=== PATIENT | male | born 1965 | race Caucasian/White ===

== ENCOUNTER 2016-09-18 18:17 | Inpatient (IN) | payer OTHER ==
[~2016-09-18] VITALS: Ht 182.9 cm; Wt 128.0 kg
[2016-09-18] MEDS ORDERED: FLUOXETINE20 M3 PO (19:39)
[2016-09-18] MEDS ORDERED: FUROSEMIDE40 MG PO (19:39)
[2016-09-18] MEDS ORDERED: CARVEDILOL3.125 M1 PO (19:39)
[2016-09-18] MEDS ORDERED: LANTUS SOLOS100 U/M1 SQ (19:40)
[2016-09-18] MEDS ORDERED: APIDRA SOLOS100 U/ML SC (19:41)
[2016-09-18] MEDS ORDERED: SEROQUEL100 MG PO (19:42)
[2016-09-18] MEDS ORDERED: ASPIR 8181 MG PO (19:42)
[2016-09-18] MEDS ORDERED: EFFIENT10 M2 PO (19:42)
[2016-09-18] MEDS ORDERED: LIPITOR80 MG PO (19:42)
[2016-09-18] MEDS ORDERED: PANTOPRAZOLE SO40 M1 PO (19:43)
[2016-09-18] MEDS ORDERED: CLONAZEPAM1 MG PO (19:43)
[2016-09-18 19:55] LABS: PLATELET COUNT 142 x10^3mcL (130-400)
[2016-09-18 20:00] LABS: BILIRUBIN TOTAL 0.19 mg/dL (0.20-1.00); CARBON DIOXIDE 21.9 mmol/L (21-32); CREATININE SERUM 2.8 mg/dL (0.7-1.3); POTASSIUM SERUM 4.8 mmol/L (3.5-5.1); TOTAL PROTEIN, SERUM 6.2 g/dL (6.4-8.2)
[2016-09-18 20:01] LABS: ALBUMIN 3.1 g/dL (3.4-5.0)
[2016-09-18 20:05] LABS: RED CELL DISTRIBUTION WIDTH 20.3 % (11.5-14.5)
[2016-09-18] MEDS ORDERED: COUMADIN3 MG PO (20:16)
[2016-09-18 21:19] LABS: BAND NEUTROPHIL 2 % (0-10); BASOPHIL 0 % (0-2); MONOCYTE 18 % (0-7); SEGMENTED NEUTROPHILS 55 % (37-75); rbc morphology (normal/abnorm) ABNORMAL (NORMAL)
[2016-09-18 21:21] LABS: ovalocyte/elliptocyte 1+; schistocyte (helmet cell) 1+
[2016-09-18 21:23] LABS: tear drop cell (dacryocyte) 1+
[2016-09-18 21:24] LABS: PLATELET MORPHOLOGY PLATELETS NORMAL
[2016-09-18 22:22] VITALS: BP 100/66
[2016-09-18 23:34] LABS: CHOLESTEROL/HDL RATIO 3.4; MAGNESIUM 1.8 mg/dL (1.8-2.4); PHOSPHOROUS 5.1 mg/dL (2.5-4.9); T3 TOTAL 0.5 ng/mL
[2016-09-19] LABS: FREE T4 0.53 ng/dL (0.76-1.46); T4(THYROXINE) 2.8 ug/dL (4.7-13.3)
[2016-09-19 01:00] VITALS: BP 91/57
[2016-09-19 03:10] VITALS: BP 109/65
[2016-09-19 07:40] VITALS: BP 123/70
[2016-09-19 09:08] LABS: microscopic required? NO
[2016-09-19 09:17] LABS: BASOPHIL % 0.2 % (0-2)
[2016-09-19 09:22] LABS: UA SPECIFIC GRAVITY 1.015 (1.005-1.035); urine erythrocyte NEGATIVE (NEGATIVE)
[2016-09-19 09:24] LABS: PLATELET COUNT 142 x10^3mcL (130-400)
[2016-09-19 09:26] LABS: RED CELL DISTRIBUTION WIDTH 18.9 % (11.5-14.5)
[2016-09-19 09:27] LABS: AMPHETAMINE QUAL UR NONE DETECTED (NEG <=1000)
[2016-09-19 09:29] LABS: CALCIUM 7.9 mg/dL (8.5-10.1); CARBON DIOXIDE 20.3 mmol/L (21-32); CREATININE SERUM 1.9 mg/dL (0.7-1.3); POTASSIUM SERUM 5.1 mmol/L (3.5-5.1)
[2016-09-19 12:15] VITALS: BP 110/69
[2016-09-19] MEDS ORDERED: TRAZODONE50 M1 PO (14:52)
[2016-09-19] MEDS ORDERED: CLOPIDOGREL75 M1 PO (14:53)
[2016-09-19] MEDS ORDERED: DOXAZOSIN MESYLA4 MG PO (14:54)
[2016-09-19] MEDS ORDERED: NEU300 PO ×2 (14:55)
[2016-09-19] MEDS ORDERED: ISOSORBIDE MONO30 MG PO (14:56)
[2016-09-19] MEDS ORDERED: GLIMEPIRIDE4 M1 PO (14:57)
[2016-09-19] MEDS ORDERED: METFORMIN HCL1000 MG PO (14:57)
[2016-09-19] MEDS ORDERED: LANTUS SOLOS100 U/M1 SQ (14:58)
[2016-09-19] MEDS ORDERED: METOPROLOL TART25 M1 PO (15:04)
[2016-09-19] MEDS ORDERED: DIGOXIN0.125 M1 PO (15:05)
[2016-09-19] MEDS ORDERED: NITROSTAT0.4 MG (15:06)
[2016-09-19 15:15] VITALS: BP 121/82
[2016-09-19 19:30] VITALS: BP 131/93
[2016-09-20] VITALS: BP 116/73
[2016-09-20 03:47] VITALS: BP 110/77
[2016-09-20 06:00] LABS: CALCIUM 7.8 mg/dL (8.5-10.1); CARBON DIOXIDE 27.2 mmol/L (21-32); CHLORIDE SERUM 111 mmol/L (98-107); CREATININE SERUM 1.2 mg/dL (0.7-1.3); GFR1 > 60 mL/min; GLUCOSE SERUM 141 mg/dL (74-106); MAGNESIUM 1.9 mg/dL (1.8-2.4); PHOSPHOROUS 2.5 mg/dL (2.5-4.9); POTASSIUM SERUM 4.5 mmol/L (3.5-5.1); SODIUM SERUM 145 mmol/L (136-145)
[2016-09-20 06:08] LABS: BASOPHIL % 0.1 % (0-2); PLATELET COUNT 181 x10^3mcL (130-400)
[2016-09-20 06:16] LABS: RED CELL DISTRIBUTION WIDTH 20.1 % (11.5-14.5)
[2016-09-20 07:15] VITALS: BP 118/90
[2016-09-20 14:44] VITALS: BP 114/73
[2016-09-20 18:28] VITALS: BP 109/69
[2016-09-20 19:30] VITALS: BP 140/80
[2016-09-21 06:09] VITALS: BP 133/94
[2016-09-21 08:06] VITALS: BP 141/93
[2016-09-21 09:52] VITALS: BP 136/95
[2016-09-21 13:38] VITALS: BP 120/86
[2016-09-21] MEDS ORDERED: FER300 PO (14:34)
[2016-09-21 14:50] VITALS: BP 120/86
== END 2016-09-21 15:48 | disposition home or self-care (01) | DRG 48 ==
LOC: ED 18:17 → IC 20:42 → DU 20:42 → IC 22:28 → DU 09-20 11:49
PROVIDERS: Emergency Medicine; Internal Medicine; ADMIT Family Medicine
PROC: 30233N1 Transfusion of Nonautologous Red Blood Cells into Peripheral Vein, Percutaneous Approach (ICD-10-PCS; 2016-09-18)
PROC: 30233R1 Transfusion of Nonautologous Platelets into Peripheral Vein, Percutaneous Approach (ICD-10-PCS; 2016-09-18)
PROC: 0DJD8ZZ Inspection of Lower Intestinal Tract, Via Natural or Artificial Opening Endoscopic (ICD-10-PCS; 2016-09-19)
PROC: 05HN33Z Insertion of Infusion Device into Left Internal Jugular Vein, Percutaneous Approach (ICD-10-PCS; 2016-09-19)
PROC: B544ZZA Ultrasonography of Left Jugular Veins, Guidance (ICD-10-PCS; 2016-09-19)
PROC: 0DJ08ZZ Inspection of Upper Intestinal Tract, Via Natural or Artificial Opening Endoscopic (ICD-10-PCS; principal; 2016-09-20 08:30)
PROC: 0W3P8ZZ Control Bleeding in Gastrointestinal Tract, Via Natural or Artificial Opening Endoscopic (ICD-10-PCS; 2016-09-20 08:30)
DX: G90.8 Other disorders of autonomic nervous system (principal); N17.0 Acute kidney failure with tubular necrosis; I67.4 Hypertensive encephalopathy; D68.69 Other thrombophilia; I95.9 Hypotension, unspecified; E44.0 Moderate protein-calorie malnutrition; D62 Acute posthemorrhagic anemia; E11.65 Type 2 diabetes mellitus with hyperglycemia; K64.4 Residual hemorrhoidal skin tags; I25.10 Atherosclerotic heart disease of native coronary artery without angina pectoris; T45.515A Adverse effect of anticoagulants, initial encounter; E66.9 Obesity, unspecified; F17.200 Nicotine dependence, unspecified, uncomplicated; H91.90 Unspecified hearing loss, unspecified ear; F41.9 Anxiety disorder, unspecified; E78.5 Hyperlipidemia, unspecified; Z53.29 Procedure and treatment not carried out because of patient's decision for other reasons; K29.70 Gastritis, unspecified, without bleeding; Z79.4 Long term (current) use of insulin; I25.2 Old myocardial infarction; Z95.5 Presence of coronary angioplasty implant and graft; Y92.018 Other place in single-family (private) house as the place of occurrence of the external cause; Z90.49 Acquired absence of other specified parts of digestive tract; Z79.82 Long term (current) use of aspirin; Z79.01 Long term (current) use of anticoagulants; Z79.899 Other long term (current) drug therapy; Z68.38 Body mass index [BMI] 38.0-38.9, adult
CPT/HCPCS: 36556; 43235; 45378; 82962; 83880; 84439; C9113; J0690; J1170; J1200; J1610; J1642; J1815; J2001; J2250; J2270; J2310; J2354; J2405; J3010; J3430; J3490; J7030; J7040; J7042; J7050; J7131; P9016; P9035; Q0092

== ENCOUNTER 2016-10-17 17:33 | Observation (INO) | payer OTHER ==
[~2016-10-17] VITALS: Ht 182.9 cm; Wt 128.0 kg
[~2016-10-17 17:33] MED LIST: APIDRA SOLOS100 U/ML SC; ASPIR 8181 MG PO; CARVEDILOL3.125 M1 PO; CLONAZEPAM1 MG PO; CLOPIDOGREL75 M1 PO; COUMADIN3 MG PO; DIGOXIN0.125 M1 PO; DOXAZOSIN MESYLA4 MG PO; EFFIENT10 M2 PO; FER300 PO; FLUOXETINE20 M3 PO; FUROSEMIDE40 MG PO; GLIMEPIRIDE4 M1 PO; ISOSORBIDE MONO30 MG PO; LANTUS SOLOS100 U/M1 SQ; LIPITOR80 MG PO; METFORMIN HCL1000 MG PO; METOPROLOL TART25 M1 PO; NEU300 PO; NITROSTAT0.4 MG; PANTOPRAZOLE SO40 M1 PO; SEROQUEL100 MG PO; TRAZODONE50 M1 PO
[2016-10-17 19:14] LABS: PLATELET COUNT 164 x10^3mcL (130-400)
[2016-10-17 19:17] LABS: RED CELL DISTRIBUTION WIDTH 18.9 % (11.5-14.5)
[2016-10-17 19:21] LABS: CALCIUM 7.3 mg/dL (8.5-10.1); CARBON DIOXIDE 19.4 mmol/L (21-32)
[2016-10-17 19:24] LABS: POTASSIUM SERUM 4.6 mmol/L (3.5-5.1)
[2016-10-17 19:29] LABS: ALBUMIN 3.6 g/dL (3.4-5.0); BILIRUBIN TOTAL 0.5 mg/dL (0.20-1.00)
[2016-10-17 19:39] LABS: BAND NEUTROPHIL 4 % (0-10); BASOPHIL 0 % (0-2); MONOCYTE 6 % (0-7); SEGMENTED NEUTROPHILS 50 % (37-75)
[2016-10-17 19:53] LABS: ovalocyte/elliptocyte 1+; rbc morphology (normal/abnorm) ABNORMAL (NORMAL); schistocyte (helmet cell) 1+; tear drop cell (dacryocyte) 2+
[2016-10-17 19:54] LABS: PATH REVIEW for HEMA YES; PLATELET MORPHOLOGY PLATELETS NORMAL
[2016-10-17 20:09] LABS: AMPHETAMINE QUAL UR NONE DETECTED (NEG <=1000)
[2016-10-17 20:53] LABS: CREATININE SERUM 1.9 mg/dL (0.7-1.3); TOTAL PROTEIN, SERUM 7.3 g/dL (6.4-8.2)
[2016-10-18] MEDS ORDERED: ALDACTONE25 MG PO (00:53)
[2016-10-18] MEDS ORDERED: METOPROLOL SUC100 M2 PO (00:53)
[2016-10-18] MEDS ORDERED: COUMADIN3 MG PO (00:53)
[2016-10-18] MEDS ORDERED: METFORMIN HCL1000 MG PO (00:53)
[2016-10-18] MEDS ORDERED: INDOMETHACIN50 MG PO (00:53)
[2016-10-18 02:03] LABS: MAGNESIUM 1.8 mg/dL (1.8-2.4); PHOSPHOROUS 5.4 mg/dL (2.5-4.9)
[2016-10-18 02:35] VITALS: BP 100/65
[2016-10-18 05:28] VITALS: BP 100/64
[2016-10-18 08:42] VITALS: BP 108/71
[2016-10-18 12:28] VITALS: BP 98/60
[2016-10-18 12:44] LABS: PLATELET COUNT 150 x10^3mcL (130-400)
[2016-10-18 12:54] LABS: RED CELL DISTRIBUTION WIDTH 18.7 % (11.5-14.5)
[2016-10-18 12:56] LABS: CALCIUM 8.2 mg/dL (8.5-10.1); CARBON DIOXIDE 20.1 mmol/L (21-32); CHLORIDE SERUM 110 mmol/L (98-107); CREATININE SERUM 1.3 mg/dL (0.7-1.3); GFR1 > 60 mL/min; GLUCOSE SERUM 83 mg/dL (74-106); SODIUM SERUM 136 mmol/L (136-145)
[2016-10-18 12:58] LABS: POTASSIUM SERUM 5.7 mmol/L (3.5-5.1)
[2016-10-18 13:17] LABS: BAND NEUTROPHIL 0 % (0-10); BASOPHIL 0 % (0-2); MONOCYTE 19 % (0-7); SEGMENTED NEUTROPHILS 43 % (37-75)
[2016-10-18 13:18] LABS: rbc morphology (normal/abnorm) ABNORMAL (NORMAL)
[2016-10-18 16:02] LABS: CALCIUM 8.1 mg/dL (8.5-10.1); CARBON DIOXIDE 20.8 mmol/L (21-32); CHLORIDE SERUM 110 mmol/L (98-107); CREATININE SERUM 1.3 mg/dL (0.7-1.3); GFR1 > 60 mL/min; GLUCOSE SERUM 131 mg/dL (74-106); SODIUM SERUM 137 mmol/L (136-145)
[2016-10-18 16:19] VITALS: BP 98/60
[2016-10-18 16:33] LABS: BASOPHIL % 0.3 % (0-2); PLATELET COUNT 149 x10^3mcL (130-400)
[2016-10-18] MEDS ORDERED: METOPROLOL SUCC50 M2 PO (16:46)
[2016-10-18] MEDS ORDERED: COLACE100 MG PO (16:46)
== END 2016-10-18 17:33 | disposition home or self-care (01) | DRG 249 ==
LOC: ED 17:33 → DU 10-18 00:02
PROVIDERS: Emergency Medicine; ADMIT Family Medicine
DX: E86.0 Dehydration (principal); A08.4 Viral intestinal infection, unspecified; N17.0 Acute kidney failure with tubular necrosis; E11.65 Type 2 diabetes mellitus with hyperglycemia; R07.89 Other chest pain; I10 Essential (primary) hypertension; F41.8 Other specified anxiety disorders; K21.9 Gastro-esophageal reflux disease without esophagitis; G47.00 Insomnia, unspecified; E78.5 Hyperlipidemia, unspecified; D64.9 Anemia, unspecified; F17.210 Nicotine dependence, cigarettes, uncomplicated; I25.10 Atherosclerotic heart disease of native coronary artery without angina pectoris; I25.2 Old myocardial infarction; Z95.5 Presence of coronary angioplasty implant and graft; Z95.1 Presence of aortocoronary bypass graft; Z79.82 Long term (current) use of aspirin; Z79.4 Long term (current) use of insulin; Z68.38 Body mass index [BMI] 38.0-38.9, adult
CPT/HCPCS: 82962; 83880; 85060; 87046; 87046-59; G0378; J1815; J7030; Q0092

== ENCOUNTER 2017-03-26 15:32 | Emergency (ER) | payer OTHER ==
[~2017-03-26] VITALS: Ht 182.9 cm; Wt 136.1 kg
[~2017-03-26 15:32] MED LIST changes: +ALDACTONE25 MG PO; +COLACE100 MG PO; +INDOMETHACIN50 MG PO; +METOPROLOL SUC100 M2 PO; +METOPROLOL SUCC50 M2 PO
[2017-03-26 16:48] VITALS: Ht 182.9 cm; Wt 136.1 kg
[2017-03-26 20:42] VITALS: BP 110/61
== END 2017-03-26 20:42 | disposition home or self-care (01) ==
LOC: ED 15:32
DX: M10.062 Idiopathic gout, left knee (principal)
CPT/HCPCS: J1885

== ENCOUNTER 2019-08-20 16:15 | Emergency (ER) | payer OTHER ==
[~2019-08-20] VITALS: Ht 182.9 cm; Wt 139.3 kg
[2019-08-20 16:29] VITALS: BP 183/83; Ht 182.9 cm; Wt 139.3 kg
== END 2019-08-20 17:58 | disposition home or self-care (01) ==
LOC: ED 16:15
DX: S53.491A Other sprain of right elbow, initial encounter (principal); S43.401A Unspecified sprain of right shoulder joint, initial encounter; I10 Essential (primary) hypertension; E11.9 Type 2 diabetes mellitus without complications; M10.9 Gout, unspecified; X58.XXXA Exposure to other specified factors, initial encounter; Y93.89 Activity, other specified; Y92.89 Other specified places as the place of occurrence of the external cause; Y99.8 Other external cause status
CPT/HCPCS: J1885